=== PATIENT | male | born 1960 | race Caucasian/White ===

== ENCOUNTER 2018-12-03 11:25 | Inpatient (IN) | payer MEDICAID, OTHER ==
[~2018-12-03] VITALS: Ht 170.2 cm; Wt 73.1 kg
[2018-12-03] VITALS (8 sets, daily range): BP systolic 97–148; BP diastolic 59–72
[2018-12-03] MEDS: K, MAG and/or Phos replacement - Verify level? MC SCH (08:00)
[2018-12-03] MEDS: pantoprazole 40 MG vial IV SCH (08:00)
[~2018-12-03 11:25] MED LIST: CefTRIAXone 2gm/D5W 50ml 50 ML IV SCH; folic acid inj. 2 MG, thiamine inj. 100 MG, MVI, adult No.4 with vit. K 10 ML in dextro... IV SCH
--- NOTE | 2018-12-03 11:28 | NUR ---
REPORT FROM POWERHOUSE ELECTRICIAN APPRENTICE CINDY: PATIENT FROM HOSPITAL IN [place], PATIENT SEIZED FOR HOURS PRIOR TO ARRIVAL AT [facility] AND RECIEVED AT LEAST 6 MG ATIVAN PATIENT TO ROOM 3: INTUBATED 7.5 OETT 26 AT THE LIP, RIGHT NARES NG TUBE WITH COFFEE GROUND EMESIS, 2 20 GAUGE SL IN EACH ARM, RIGHT SUBCLAVIAN TL WITH PROTONIX GTT, LEVOPHED AT 1 MCG, DIPRIVAN, VERSED, FENTANYL GTTS FOR SEDATION PATIENT PURPOSEFUL MOVT: GRABS TOWARDS TUBE WHEN TURNED ON SIDE, COCCYX WNL.
[2018-12-03] MEDS ORDERED: normal saline 1000ml 1,000 ML IV ONE ×2 (11:35→11:45)
[2018-12-03 11:40] LABS: ABG BASE EXCESS 0.4 mmol/L (-2.0-3.0); ABG HCO3 24.9 mmol/L (22.0-26.0); ABG OXYGEN SATURATION 97.2 % (95-98); ABG PH (T) 7.412 (7.350-7.450); ABG PO2 (T) 93.1 mmHg (83-108); FCOHb 0.3 % (0.5-1.5); FMetHb 0.3 % (0.3-1.12); FO2Hb 96.6 % (94-100); PEEP 5 cm H2O; RESPIRATORY RATE 18 b/min; TOTAL HEMOGLOBIN 14.7 G/dl (14.0-18.0)
[2018-12-03] MEDS ORDERED: midazolam 100mg in NS 100ml 100 ML IV PRN (11:43)
[2018-12-03] MEDS ORDERED: NORepinephrine 8mg/ 250ml NS 250 ML IV PRN (11:43)
[2018-12-03] MEDS ORDERED: FENTANYL-0.9 % NACL/PF 100 ML IV PRN ×2 (11:43→14:32)
[2018-12-03 12:27] LABS: BASOPHILS % (AUTO) 0.4 % (0-1); EOSINOPHILS % (AUTO) 0 % (0-6); HEMATOCRIT 41.6 % (42.0-52.0); LYMPHOCYTES # (AUTO) 0.7 X10'3 (1.1-4.8); MEAN CORPUSCULAR HEMOGLOBIN 29.5 PG (27.0-31.0); MEAN CORPUSCULAR HGB CONC 33.7 g/dL (33.0-36.5); MEAN CORPUSCULAR VOLUME 87.5 FL (78-98); MEAN PLATELET VOLUME 7.5 FL (7.4-10.4); MONOCYTES # (AUTO) 0.3 X10'3 (0-0.9); MONOCYTES % (AUTO) 2.4 % (2-12); NEUTROPHILS % (AUTO) 91.2 % (42-75); PLATELET COUNT 179 X10'3 (140-440); RED BLOOD COUNT 4.76 X10'6 (4.70-6.10); RED CELL DISTRIBUTION WIDTH 13.1 % (11.5-14.5); WHITE BLOOD COUNT 10.9 X10'3 (4.5-11.0)
[2018-12-03 12:38] LABS: INR 1.3 INR; PARTIAL THROMBOPLASTIN TIME 33 SECONDS (22-32)
[2018-12-03 12:44] LABS: ALANINE AMINOTRANSFERASE 943 U/L (12-78); ALBUMIN 2.9 G/DL (3.4-5.0); ALKALINE PHOSPHATASE 22 IU/L (46-116); ANION GAP 6 (8-16); BILIRUBIN,TOTAL 0.6 MG/DL (0.1-1.0); BLOOD UREA NITROGEN 8 MG/DL (7-18); CALCIUM 8.2 MG/DL (8.5-10.1); CHLORIDE 105 MMOL/L (99-107); GLUCOSE 98 MG/DL (70-104); MAGNESIUM 1.7 MG/DL (1.5-2.4); PHOSPHORUS 3.4 MG/DL (2.3-4.5); POTASSIUM 3.5 MMOL/L (3.5-5.1); SODIUM 139 MMOL/L (135-145); TOTAL PROTEIN 5.7 G/DL (6.4-8.2); eGFR 76 ML/MIN
[2018-12-03] MEDS ORDERED: midazolam 2 mg/2 ml injection IV PRN (12:45)
[2018-12-03 12:47] LABS: ASPARTATE AMINO TRANSFERASE 1147 U/L (10-37)
[2018-12-03] MEDS: propofol 1000mg/100ml bottle 100 ML IV PRN ×3 (12:54→23:45)
--- NOTE | 2018-12-03 13:02 | NUR ---
DR BOWMAN CALLED FOR HOLDING ADMIT ORDERS, NURSING DUMBWAITER OPERATOR NOTIFIED
[2018-12-03] MEDS: fentaNYL/PF 50MCG/1 ML 2ML syringe IV PRN ×3 (13:03→13:30)
--- NOTE | 2018-12-03 13:14 | NUR ---
PHONE REPORT GIVEN TO EDUARDO DIRECTOR VALIDATION, PATIENT TO BE TRANSPORTED MONITORED WITH RN AND WITH RESPIRATORY
[2018-12-03] MEDS ORDERED: UNABLE TO OBTAIN (13:19)
--- NOTE | 2018-12-03 13:21 | NUR ---
REPIRATORY PAGED FOR TRANSPORT
--- NOTE | 2018-12-03 13:32 | NUR ---
SPUTUM THICK CREAMY AND SAMPLE SENT BY RTX
[2018-12-03 13:48] LABS: COLOR,URINE YELLOW (Yellow); GLUCOSE, URINE NEGATIVE (Neg); KETONES,URINE 15 mg/dl (Neg); LEUKOCYTE ESTERASE ,URINE SMALL (Neg); NITRITES, URINE NEGATIVE (Neg); OCCULT BLOOD,URINE LARGE (Neg); PH,URINE 5.5 (4.8-8.0); PROTEIN,URINE 30 mg/dl (Neg); UROBILINOGEN,URINE 0.2 E.U/dL (0.2-1.0)
[2018-12-03 13:49] LABS: CLARITY,URINE CLOUDY (Clear); UA COLLECTION TYPE FOLEY CATH
[2018-12-03 14:01] LABS: SQUAMOUS EPITHELIAL CELL,UR FEW /LPF (FEW)
[2018-12-03 14:07] LABS: RBC,URINE TNTC /HPF (0-2)
[2018-12-03 14:08] LABS: BACTERIA,URINE FEW /HPF (Neg); MUCUS STRANDS FEW /LPF (Neg); TRANSITIONAL EPI CELLS,URINE FEW /HPF
[2018-12-03] MEDS: FENTANYL-0.9 % NACL/PF 100 ML IV PRN (14:08)
[2018-12-03 14:14] LABS: HYALINE CASTS 0-3 /LPF (NEGATIVE)
[2018-12-03 14:15] LABS: CELLULAR CAST 0-4 /LPF (NEGATIVE)
[2018-12-03] MEDS ORDERED: sodium phosphate inj. 15 MMOL in dextrose 5%-water 150 ML IV PRN (14:15)
[2018-12-03] MEDS ORDERED: potassium Cl 20 mEq SR tablet PO PRN (14:15)
[2018-12-03] MEDS ORDERED: magnesium hydroxide 30ml (MOM) UD suspension PO PRN (14:15)
[2018-12-03] MEDS ORDERED: haloperidol 5mg tablet PO PRN (14:15)
[2018-12-03] MEDS ORDERED: magnesium Cl slow-release 64mg tablet PO PRN (14:15)
[2018-12-03] MEDS ORDERED: dextrose 50%-water 50ml dispensing syringe IV PRN (14:15)
[2018-12-03] MEDS ORDERED: haloperidol lactate 5mg/ml inj IM PRN (14:15)
[2018-12-03] MEDS ORDERED: Neutra Phos packet PO PRN (14:15)
[2018-12-03] MEDS ORDERED: sodium phosphate inj. 30 MMOL in dextrose 5%-water 250 ML IV PRN (14:15)
[2018-12-03] MEDS ORDERED: ondansetron/PF 4mg/2ml inj IV PRN (14:15)
[2018-12-03] MEDS ORDERED: acetaminophen 325mg tablet PO PRN (14:15)
[2018-12-03] MEDS ORDERED: magnesium 4gm in 100ml NS 100 ML IV PRN (14:15)
[2018-12-03] MEDS ORDERED: propofol 1000mg/100ml bottle 100 ML IV PRN (14:32)
[2018-12-03] MEDS ORDERED: ipratropium/albuterol 3ml nebule NEB PRN (14:35)
[2018-12-03] MEDS: acetaminophen 325mg tablet PO PRN (14:39)
[2018-12-03] MEDS ORDERED: folic acid inj. 2 MG, thiamine inj. 100 MG, MVI, adult No.4 with vit. K 10 ML in dextro... IV SCH ×4 (14:43)
[2018-12-03] MEDS: ringers solution, lacted 1,000 ML IV SCH (15:06)
[2018-12-03] MEDS ORDERED: pantoprazole 40MG/NS 100ML BAG 100 ML IV SCH (16:00)
[2018-12-03] MEDS: vancomycin/NS 1 GM ADD-VANTAGE 250 ML IV SCH (16:08)
[2018-12-03] MEDS: acyclovir inj 1,000 MG in normal saline 250ml IV soln 230 ML IV SCH (16:16)
[2018-12-03] MEDS: heparin, porcine 5000 units/ml vial SQ SCH (16:18)
[2018-12-03] MEDS: folic acid inj. 2 MG, thiamine inj. 100 MG, MVI, adult No.4 with vit. K 10 ML in dextro... IV SCH ×4 (17:32)
[2018-12-03] MEDS: FOSphenytoin 100mg/2ml inj IV SCH (17:32)
--- NOTE | 2018-12-03 18:30 | NUR ---
Patient in room CICU 2008. I have received report from Naman LINDQUIST, and had the opportunity to ask questions and assume patient care.
--- NOTE | 2018-12-03 18:46 | NUR ---
Admission assessment Patient unable to give any medical information due to being intubated and sedated called next of kin Orlando Goodson (brother) who stated he only knows of a heart murmur history. Other than that family states patient is healthy takes no home medications that they know of and plays golf everyday he can.
--- NOTE | 2018-12-03 18:48 | NUR ---
Spinal Tap Fluid Per [facility] they added on tests to the spinal fluid that should result tomorrow 12/04. Will follow up in the morning to ask what results were found.
[2018-12-03] MEDS ORDERED: acetaminophen 1,000mg/100ml IV 100 ML IV ONE (19:10)
[2018-12-03] MEDS ORDERED: docusate sod 100mg capsule PO SCH (20:00)
[2018-12-03] MEDS ORDERED: metoprolol succinate 25mg (24-HOUR) SR. Tablet PO SCH (20:00)
[2018-12-03] MEDS ORDERED: fentaNYL/PF 50MCG/1 ML 2ML syringe IV ONE (20:30)
[2018-12-03] MEDS ORDERED: VECuronium br 10mg inj. IV ONE (20:30)
--- NOTE | 2018-12-03 21:03 | NUR ---
Received critical Troponin of 14.6. DIE DESIGNER APPRENTICE Benitez notified, no new orders recived at this time. Continue to monitor and re-draw at 12hr jase.
[2018-12-03] MEDS: docusate sodium 100mg/10ml UD cup PO SCH (21:10)
[2018-12-03] MEDS ORDERED: gelatin sponge, absorbable (Gelfoam 12-7MM) sponge TP ONE (21:50)
[2018-12-03] MEDS: metoprolol tartrate 25mg tablet PO SCH (21:50)
[2018-12-03] MEDS: levetiracetam inj 1,500 MG in normal saline 100ml IV soln 85 ML IV SCH (21:58)
--- NOTE | 2018-12-03 22:00 | NUR ---
PT went to MRI accompanied by Charge Nurse and an RN orienting as well as RT. PT arrived back to unit around 2144. PT transferred back to bed and back on bedside monitor. PT tolerated well. Will continue to monitor.
[2018-12-03] MEDS: CefTRIAXone 2gm/D5W 50ml 50 ML IV SCH (22:19)
[2018-12-03] MEDS ORDERED: LORazepam 2 mg/ml vial IV PRN (22:20)
[2018-12-03] MEDS ORDERED: LORazepam 2 mg/ml vial IV ONE (22:20)
[2018-12-03] MEDS ORDERED: rocuronium 10mg/ml inj IV ONE (22:25)
[2018-12-04] VITALS (24 sets, daily range): BP systolic 85–144; BP diastolic 62–86
[2018-12-04] MEDS: ringers solution, lacted 1,000 ML IV SCH ×3 (00:40→20:40)
[2018-12-04] MEDS: acyclovir inj 1,000 MG in normal saline 250ml IV soln 230 ML IV SCH ×3 (01:14→15:06)
[2018-12-04] MEDS: FOSphenytoin 100mg/2ml inj IV SCH ×3 (01:14→15:06)
[2018-12-04] MEDS: heparin, porcine 5000 units/ml vial SQ SCH ×3 (01:26→15:05)
[2018-12-04 03:05] LABS: BASOPHILS % (AUTO) 0.4 % (0-1); EOSINOPHILS % (AUTO) 0 % (0-6); HEMATOCRIT 38.8 % (42.0-52.0); HEMOGLOBIN 13.2 g/dl (14.0-17.9); LYMPHOCYTES # (AUTO) 0.8 X10'3 (1.1-4.8); LYMPHOCYTES % (AUTO) 8.5 % (21-51); MEAN CORPUSCULAR HEMOGLOBIN 29.6 PG (27.0-31.0); MEAN CORPUSCULAR VOLUME 87.2 FL (78-98); MEAN PLATELET VOLUME 7.9 FL (7.4-10.4); MONOCYTES # (AUTO) 0.2 X10'3 (0-0.9); MONOCYTES % (AUTO) 1.8 % (2-12); NEUTROPHILS # (AUTO) 8.1 X10'3 (1.8-7.7); NEUTROPHILS % (AUTO) 89.3 % (42-75); PLATELET COUNT 142 X10'3 (140-440); RED BLOOD COUNT 4.45 X10'6 (4.70-6.10); RED CELL DISTRIBUTION WIDTH 13.1 % (11.5-14.5)
[2018-12-04] MEDS: vancomycin/NS 1 GM ADD-VANTAGE 250 ML IV SCH ×3 (03:22→16:18)
[2018-12-04 03:26] LABS: INR 1.3 INR; PARTIAL THROMBOPLASTIN TIME 40 SECONDS (22-32); PROTHROMBIN TIME 13.3 SECONDS (9.0-12.0)
[2018-12-04 03:29] LABS: ALBUMIN 2.6 G/DL (3.4-5.0); ALBUMIN/GLOBULIN RATIO 0.9 (1.1-1.5); ALKALINE PHOSPHATASE 18 IU/L (46-116); ANION GAP 8 (8-16); BILIRUBIN,TOTAL 0.4 MG/DL (0.1-1.0); BLOOD UREA NITROGEN 7 MG/DL (7-18); BUN/CREATININE RATIO 8.2 (5.4-32.0); CALCIUM 8.1 MG/DL (8.5-10.1); CHLORIDE 104 MMOL/L (99-107); CREATININE 0.85 MG/DL (0.60-1.10); GLUCOSE 94 MG/DL (70-104); MAGNESIUM 1.6 MG/DL (1.5-2.4); PHOSPHORUS 2.6 MG/DL (2.3-4.5); POTASSIUM 3.5 MMOL/L (3.5-5.1); SODIUM 138 MMOL/L (135-145); TOTAL CARBON DIOXIDE 26.3 MMOL/L (24-32); TOTAL PROTEIN 5.4 G/DL (6.4-8.2); eGFR > 90 ML/MIN
[2018-12-04 03:30] LABS: ABG BASE EXCESS -2.5 mmol/L (-2.0-3.0); ABG OXYGEN SATURATION 96.6 % (95-98); ABG PCO2 (T) 41.4 mmHg (35.0-48.0); ABG PH (T) 7.354 (7.350-7.450); ABG PO2 (T) 99.8 mmHg (83-108); ALLEN'S TEST Positive; FCOHb 0.3 % (0.5-1.5); FMetHb 0.3 % (0.3-1.12); MINUTE VOLUME 10 L/min; PATIENT TEMPERATURE 39.2; PEEP 5 cm H2O; RESPIRATORY RATE 16 b/min; RESPIRATORY RATE (OBSERVED) 16 b/min; TOTAL HEMOGLOBIN 14.2 G/dl (14.0-18.0)
[2018-12-04 03:33] LABS: TROPONIN I 27.67 NG/ML (0.0-0.05)
[2018-12-04 03:35] LABS: ALANINE AMINOTRANSFERASE 2313 U/L (12-78)
[2018-12-04 03:41] LABS: ASPARTATE AMINO TRANSFERASE 2187 U/L (10-37)
--- NOTE | 2018-12-04 03:45 | NUR ---
Received critical Troponin of 27.67. SURFACE TO AIR WEAPONS OFFICER Benitez notified and no new orders received at this time. No changes to rhythm and PT already on blood thinners. Will continue to monitor.
[2018-12-04] MEDS: propofol 1000mg/100ml bottle 100 ML IV PRN ×4 (04:06→18:37)
[2018-12-04] MEDS: acetaminophen 325mg tablet PO PRN (04:41)
--- NOTE | 2018-12-04 04:45 | NUR ---
PRN Tylenol given for Temp of 39.3. Will continue to monitor.
--- NOTE | 2018-12-04 06:42 | NUR ---
Problems reprioritized. Patient report given, questions answered & plan of care reviewed with Naman LINDQUIST.
[2018-12-04] MEDS: folic acid inj. 2 MG, thiamine inj. 100 MG, MVI, adult No.4 with vit. K 10 ML in dextro... IV SCH ×4 (07:03)
[2018-12-04] MEDS: levetiracetam inj 1,500 MG in normal saline 100ml IV soln 85 ML IV SCH (07:03)
[2018-12-04] MEDS: K, MAG and/or Phos replacement - Verify level? MC SCH (07:05)
[2018-12-04] MEDS: docusate sodium 100mg/10ml UD cup PO SCH ×2 (07:54→20:28)
[2018-12-04] MEDS: pantoprazole 40 MG vial IV SCH (07:54)
[2018-12-04] MEDS: metoprolol tartrate 25mg tablet PO SCH ×2 (07:55→21:58)
[2018-12-04] MEDS ORDERED: aspirin 325mg tablet PO SCH (08:30)
[2018-12-04] MEDS: potassium Cl 20 mEq SR tablet PO PRN ×2 (08:30→16:42)
[2018-12-04] MEDS: magnesium 2GM in 50ml NS 50 ML IV PRN (08:41)
[2018-12-04] MEDS ORDERED: 0.9 % SODIUM CHLORIDE 10 ML VIAL ONE (09:00)
[2018-12-04] MEDS ORDERED: rocuronium 10mg/ml inj IV ONE (09:00)
--- NOTE | 2018-12-04 11:55 | NUR ---
Influenza A positive Lab called to tell me that patient was influenza A positive. I called Dr. Jean patient placed on isolation precautions and Tamiflu BID started
--- NOTE | 2018-12-04 12:17 | NUR ---
Stop Sedation Meds Stopped Sedation meds per Dr. Jean to see if patient would respond. After 10 mins off sedation patient was able to open eyes and follow commands. Dr. Jean in the room to verify change. Off sedation the patient is very restless and Dr. Jean stated to put him back on Diprivan.
--- NOTE | 2018-12-04 13:06 | NUR ---
Patient is intubated. Per RN pt is doing well and discussed breathing trials with RT. Possible TF if needing to remain on ventilator. Recommend: 1. If to receive tube feeding while intubated recommend vital AF at 65 ml/hr 2. When extubated, advance diet as medically indicated to regular 3. Wt per rx Addendum: 12/04/18 at [address] Amended: Links added.
[2018-12-04] MEDS ORDERED: mineral oil/petrolatum ophthal oint EACHEYE SCH (14:00)
--- NOTE | 2018-12-04 15:47 | NUR ---
Large sum of [employer] called to ask if the patient had any money on his person. I went through his belongings and found a large sum of money that was checked in by security
[2018-12-04] MEDS: CefTRIAXone 2gm/D5W 50ml 50 ML IV SCH (16:18)
--- NOTE | 2018-12-04 17:42 | NUR ---
Cooling blanket Placed cooling blanket on patient per Dr. Jean.
--- NOTE | 2018-12-04 18:26 | NUR ---
Patient in room CICU 2008. I have received report from Naman LINDQUIST, and had the opportunity to ask questions and assume patient care.
--- NOTE | 2018-12-04 19:30 | NUR ---
PT resting with no s/s of distress noted at this time. VSS. PT is intubated and mechanically vented, tolerating settings well, O2 sat <96%. PT tolerating sedation well. PT has cooling blankets in place d/t being febrile and unable to give tylenol d/t LFT's being elevated. Knutson in place draining to gravity. Bed is locked and low. Bilat soft wrist restraints in place and secure. Will continue to monitor.
[2018-12-04] MEDS: FENTANYL-0.9 % NACL/PF 100 ML IV PRN (19:36)
--- NOTE | 2018-12-04 19:42 | NUR ---
Dr Cisneros assessed PT and to follow up. Received orders to DC the Fosphenytoin and to change Keppra order from 1500mg Bid to 1000mg BID. Will continue to monitor.
[2018-12-04] MEDS: oseltamivir phos 75mg capsule PO SCH (20:28)
[2018-12-04] MEDS: mineral oil/petrolatum ophthal oint EACHEYE SCH (20:38)
[2018-12-04] MEDS: levetiracetam inj 1,000 MG in normal saline 100ml IV soln 90 ML IV SCH (21:44)
[2018-12-05] VITALS (24 sets, daily range): BP systolic 83–150; BP diastolic 51–92
--- NOTE | 2018-12-05 | NUR ---
PT resting with no s/s of distress noted at this time. VSS. Will continue to monitor.
[2018-12-05] MEDS: heparin, porcine 5000 units/ml vial SQ SCH ×3 (00:22→15:52)
[2018-12-05] MEDS: acyclovir inj 1,000 MG in normal saline 250ml IV soln 230 ML IV SCH ×3 (00:22→15:51)
[2018-12-05] MEDS: propofol 1000mg/100ml bottle 100 ML IV PRN ×5 (00:31→16:59)
[2018-12-05] MEDS: vancomycin/NS 1 GM ADD-VANTAGE 250 ML IV SCH (01:54)
[2018-12-05] MEDS ORDERED: VANCOMYCIN LEVEL IV ONE ×2 (02:30→08:30)
[2018-12-05] MEDS: mineral oil/petrolatum ophthal oint EACHEYE SCH ×4 (03:22→20:35)
[2018-12-05 03:29] LABS: BASOPHILS % (AUTO) 0.4 % (0-1); EOSINOPHILS % (AUTO) 0.3 % (0-6); HEMATOCRIT 40.3 % (42.0-52.0); HEMOGLOBIN 13.6 g/dl (14.0-17.9); LYMPHOCYTES # (AUTO) 1.2 X10'3 (1.1-4.8); LYMPHOCYTES % (AUTO) 15.3 % (21-51); MEAN CORPUSCULAR HEMOGLOBIN 29.5 PG (27.0-31.0); MEAN CORPUSCULAR HGB CONC 33.7 g/dL (33.0-36.5); MEAN CORPUSCULAR VOLUME 87.8 FL (78-98); MEAN PLATELET VOLUME 8.1 FL (7.4-10.4); MONOCYTES # (AUTO) 0.5 X10'3 (0-0.9); MONOCYTES % (AUTO) 6.1 % (2-12); NEUTROPHILS % (AUTO) 77.9 % (42-75); PLATELET COUNT 146 X10'3 (140-440); RED BLOOD COUNT 4.59 X10'6 (4.70-6.10); RED CELL DISTRIBUTION WIDTH 13.2 % (11.5-14.5); WHITE BLOOD COUNT 7.6 X10'3 (4.5-11.0)
--- NOTE | 2018-12-05 03:30 | NUR ---
PT waking agitated and requiring frequent bolus of Propofol to be compliant with vent. VSS. Temperature has been decreasing nicely with cooling blankets in place. Will continue to monitor.
[2018-12-05 03:37] LABS: PARTIAL THROMBOPLASTIN TIME 42 SECONDS (22-32); PROTHROMBIN TIME 10.3 SECONDS (9.0-12.0)
[2018-12-05 03:46] LABS: ALBUMIN 2.4 G/DL (3.4-5.0); ALBUMIN/GLOBULIN RATIO 0.8 (1.1-1.5); ALKALINE PHOSPHATASE 18 IU/L (46-116); ANION GAP 5 (8-16); ASPARTATE AMINO TRANSFERASE 830 U/L (10-37); BILIRUBIN,TOTAL 0.5 MG/DL (0.1-1.0); BLOOD UREA NITROGEN 7 MG/DL (7-18); BUN/CREATININE RATIO 8.9 (5.4-32.0); CALCIUM 7.8 MG/DL (8.5-10.1); CHLORIDE 106 MMOL/L (99-107); CREATININE 0.79 MG/DL (0.60-1.10); GLUCOSE 82 MG/DL (70-104); MAGNESIUM 1.6 MG/DL (1.5-2.4); POTASSIUM 3.8 MMOL/L (3.5-5.1); SODIUM 140 MMOL/L (135-145); TOTAL CARBON DIOXIDE 29.1 MMOL/L (24-32); TOTAL PROTEIN 5.3 G/DL (6.4-8.2); eGFR > 90 ML/MIN
[2018-12-05 03:48] LABS: ALANINE AMINOTRANSFERASE 1526 U/L (12-78)
[2018-12-05 03:49] LABS: TROPONIN I 15.05 NG/ML (0.0-0.05)
[2018-12-05 04:41] LABS: ABG BASE EXCESS -2.1 mmol/L (-2.0-3.0); ABG HCO3 23.4 mmol/L (22.0-26.0); ABG OXYGEN SATURATION 95.4 % (95-98); ABG PO2 (T) 84.4 mmHg (83-108); ALLEN'S TEST Positive; FCOHb 0.3 % (0.5-1.5); FMetHb 0.4 % (0.3-1.12); FO2Hb 94.7 % (94-100); MINUTE VOLUME 13 L/min; PATIENT TEMPERATURE 38.2; PEEP 5 cm H2O; RESPIRATORY RATE 14 b/min; RESPIRATORY RATE (OBSERVED) 17 b/min; TOTAL HEMOGLOBIN 14.3 G/dl (14.0-18.0)
[2018-12-05] MEDS: ringers solution, lacted 1,000 ML IV SCH ×2 (04:57→15:52)
--- NOTE | 2018-12-05 06:30 | NUR ---
Patient in room CICU 2008. I have received report from AMEENA Tavarez and had the opportunity to ask questions and assume patient care.
[2018-12-05] MEDS: FENTANYL-0.9 % NACL/PF 100 ML IV PRN ×2 (06:37→16:10)
--- NOTE | 2018-12-05 07:04 | NUR ---
Problems reprioritized. Patient report given, questions answered & plan of care reviewed with Maria G LINDQUIST.
[2018-12-05] MEDS ORDERED: potassium Cl 40MEQ/250ML bag 250 ML IV PRN (07:30)
[2018-12-05] MEDS: docusate sodium 100mg/10ml UD cup PO SCH ×2 (07:44→20:10)
[2018-12-05] MEDS: pantoprazole 40 MG vial IV SCH (07:44)
[2018-12-05] MEDS: oseltamivir phos 75mg capsule PO SCH ×2 (07:45→20:10)
[2018-12-05] MEDS: aspirin 81mg tablet.DR PO SCH (07:46)
[2018-12-05] MEDS: metoprolol tartrate 25mg tablet PO SCH ×2 (07:46→20:00)
[2018-12-05] MEDS: levetiracetam inj 1,000 MG in normal saline 100ml IV soln 90 ML IV SCH ×2 (07:51→20:10)
[2018-12-05] MEDS ORDERED: dextrose 50%-water 50ml dispensing syringe IV PRN ×2 (08:00)
[2018-12-05] MEDS ORDERED: glucagon, human recombinant 1mg kit SUBCUT PRN (08:00)
[2018-12-05] MEDS ORDERED: levetiracetam inj 1,000 MG in normal saline 100ml IV soln 90 ML IV SCH (08:00)
[2018-12-05] MEDS: K, MAG and/or Phos replacement - Verify level? MC SCH (08:00)
[2018-12-05] MEDS ORDERED: dextrose ORAL solution 15 GM/59 ML bottle PO PRN ×2 (08:00)
[2018-12-05] MEDS: folic acid inj. 2 MG, thiamine inj. 100 MG, MVI, adult No.4 with vit. K 10 ML in dextro... IV SCH ×4 (08:27)
[2018-12-05] MEDS: magnesium 2GM in 50ml NS 50 ML IV PRN (09:15)
[2018-12-05] MEDS ORDERED: vancomycin inj 1,250 MG in normal saline 250ml IV soln 250 ML IV SCH (11:00)
[2018-12-05 11:48] LABS: PREALBUMIN 11.2 MG/DL (19-36)
[2018-12-05] MEDS: potassium Cl 40MEQ/250ML bag 250 ML IV PRN (12:29)
--- NOTE | 2018-12-05 12:30 | NUR ---
Tube feeding consult. Patient is intubated. Per RN pt is doing well and discussed breathing trials with RT. Possible TF if needing to remain on ventilator. Recommend: 1. Continuous tube feeding using vital AF at 65 ml/hr to provide total volume 1560 ml, 1872 cals, 117 gm protein, 1265 ml free water. 2. Additional 200 ml water flush q 4 hrs 3. Prealbumin q /, daily wts 4. When extubated, advance diet as medically indicated to regular Addendum: 12/05/18 at [address] Amended: Links added.
--- NOTE | 2018-12-05 12:31 | NUR ---
TF consult, patient still intubated and sedated. Needs nutrition per OG tube with tube feedings. Patient is influenza A positive. Admitted with NSTEMI, status epilepticus, acute respiratory failure per MD note. Recommend: 1. Continuous tube feeding using vital AF at 65 ml/hr to provide total volume 1560 ml, 1872 cals, 117 gm protein, 1265 ml free water. 2. Additional 200 ml water flush q 4 hrs 3. Prealbumin q /, daily wts 4. When extubated, advance diet as medically indicated to regular Addendum: 12/05/18 at [address] Amended: Links added.
[2018-12-05] MEDS: dexmedetomidin/NS 400mcg/100ml 100 ML IV SCH (14:14)
[2018-12-05] MEDS ORDERED: polyethylene glycol 3350 17gm powd pack PO PRN (14:15)
[2018-12-05] MEDS ORDERED: bisacodyl 10mg suppository rectal RC PRN (14:15)
--- NOTE | 2018-12-05 14:38 | NUR ---
pt is intubated and sedated, sedation vacation completed, pt opened eyes spontaneously but doesnt make any meaningful eye contact. unable to follow verbal commands, pt is restless when awake. precedex gtt initiated and titrating to maintain RASS score. Dr. Jean arrived on unit and assessed pt, updated on pt condition.
[2018-12-05] MEDS: CefTRIAXone 2gm/D5W 50ml 50 ML IV SCH (16:59)
[2018-12-05] MEDS ORDERED: normal saline 1000ml 1,000 ML IV ONE (17:45)
[2018-12-05] MEDS ORDERED: normal saline 500ml IV soln 1,000 ML IV ONE (17:50)
--- NOTE | 2018-12-05 17:56 | NUR ---
pt became hypotensive at times, MAP 50-55. Dr. Jean notified and 500cc NS bolus order received x1 to improve BP. Titrating sedation gtt to maintain MAP >60
--- NOTE | 2018-12-05 18:20 | NUR ---
Problems reprioritized. Patient report given, questions answered & plan of care reviewed with AMEENA Tavarez.
--- NOTE | 2018-12-05 18:25 | NUR ---
Patient in room CICU 2008. I have received report from Maria G LINDQUIST, and had the opportunity to ask questions and assume patient care.
--- NOTE | 2018-12-05 19:00 | NUR ---
PT intubated and sedated. BP was decreased @ 70's/40's, sedation vacation performed @ 1834. PT woke up easily and followed commands. Sedation turned back on at half the prior running rate @ 1857 d/t PT becoming agitated. BP improved with sedation off. PT is afebrile. Knutson in place draining to gravity. Bed is locked and low. Bilat soft wrist restraints in place and secure. Will continue to monitor closely.
[2018-12-05] MEDS: lactobacillus rhamnosus 10,000 MMU CELLS/CAPSULE PO SCH (20:10)
--- NOTE | 2018-12-05 20:15 | NUR ---
PT BP is decreased, 80's/50's, map >60. CHARGER TESTER Bassam notified of low BP and 2000 dose of Lopressor being due. Received order to hold tonights dose and change order to 12.5mg BIS instead of the 25mg BID. Will continue to monitor.
--- NOTE | 2018-12-05 22:00 | NUR ---
PT agitated and constantly moving in bed. He is scooting himself down in attempts to self extubate. Restraints secured tightly. Sedation being titrated up as PT tolerates. Will continue to monitor closely.
[2018-12-06] VITALS (24 sets, daily range): BP systolic 78–137; BP diastolic 47–88
[2018-12-06] MEDS: acyclovir inj 1,000 MG in normal saline 250ml IV soln 230 ML IV SCH ×2 (00:02→08:49)
[2018-12-06] MEDS: heparin, porcine 5000 units/ml vial SQ SCH ×3 (00:02→16:01)
[2018-12-06] MEDS: mineral oil/petrolatum ophthal oint EACHEYE SCH ×4 (02:00→19:46)
--- NOTE | 2018-12-06 03:00 | NUR ---
PT BP decreased, Precedex turned off d/t being sensitive to med. Will continue to monitor.
[2018-12-06 03:22] LABS: BASOPHILS % (AUTO) 0.6 % (0-1); EOSINOPHILS # (AUTO) 0.2 X10'3 (0-0.9); EOSINOPHILS % (AUTO) 4.6 % (0-6); HEMATOCRIT 34.8 % (42.0-52.0); HEMOGLOBIN 11.9 g/dl (14.0-17.9); LYMPHOCYTES # (AUTO) 0.9 X10'3 (1.1-4.8); LYMPHOCYTES % (AUTO) 20.2 % (21-51); MEAN CORPUSCULAR HEMOGLOBIN 29.7 PG (27.0-31.0); MEAN CORPUSCULAR HGB CONC 34.2 g/dL (33.0-36.5); MEAN CORPUSCULAR VOLUME 86.9 FL (78-98); MEAN PLATELET VOLUME 7.8 FL (7.4-10.4); MONOCYTES # (AUTO) 0.6 X10'3 (0-0.9); MONOCYTES % (AUTO) 12.1 % (2-12); NEUTROPHILS # (AUTO) 2.8 X10'3 (1.8-7.7); NEUTROPHILS % (AUTO) 62.5 % (42-75); PLATELET COUNT 152 X10'3 (140-440); RED BLOOD COUNT 4.01 X10'6 (4.70-6.10); RED CELL DISTRIBUTION WIDTH 13.2 % (11.5-14.5); WHITE BLOOD COUNT 4.5 X10'3 (4.5-11.0)
[2018-12-06 03:31] LABS: PARTIAL THROMBOPLASTIN TIME 42 SECONDS (22-32); PROTHROMBIN TIME 9.9 SECONDS (9.0-12.0)
[2018-12-06 03:49] LABS: ALANINE AMINOTRANSFERASE 882 U/L (12-78); ALBUMIN/GLOBULIN RATIO 0.7 (1.1-1.5); ALKALINE PHOSPHATASE 20 IU/L (46-116); ANION GAP 6 (8-16); ASPARTATE AMINO TRANSFERASE 524 U/L (10-37); BILIRUBIN,TOTAL 0.3 MG/DL (0.1-1.0); BLOOD UREA NITROGEN 6 MG/DL (7-18); BUN/CREATININE RATIO 10.2 (5.4-32.0); CALCIUM 7.9 MG/DL (8.5-10.1); CHLORIDE 109 MMOL/L (99-107); CREATININE 0.59 MG/DL (0.60-1.10); GLUCOSE 102 MG/DL (70-104); MAGNESIUM 1.6 MG/DL (1.5-2.4); PHOSPHORUS 1.8 MG/DL (2.3-4.5); POTASSIUM 3.2 MMOL/L (3.5-5.1); SODIUM 145 MMOL/L (135-145); TOTAL PROTEIN 4.7 G/DL (6.4-8.2); eGFR > 90 ML/MIN
[2018-12-06 03:51] LABS: ABG BASE EXCESS 2.8 mmol/L (-2.0-3.0); ABG HCO3 28.3 mmol/L (22.0-26.0); ABG OXYGEN SATURATION 97.8 % (95-98); ABG PCO2 (T) 45.5 mmHg (35.0-48.0); ABG PH (T) 7.409 (7.350-7.450); ABG PO2 (T) 104.1 mmHg (83-108); ALLEN'S TEST Positive; FCOHb 0.3 % (0.5-1.5); FMetHb 0.1 % (0.3-1.12); FO2Hb 97.4 % (94-100); MINUTE VOLUME 10 L/min; PATIENT TEMPERATURE 36.2; PEEP 5 cm H2O; RESPIRATORY RATE 16 b/min; RESPIRATORY RATE (OBSERVED) 24 b/min; TIDAL VOLUME 606 mL; TOTAL HEMOGLOBIN 13.1 G/dl (14.0-18.0)
[2018-12-06 03:53] LABS: TROPONIN I 6.05 NG/ML (0.0-0.05)
[2018-12-06] MEDS: ringers solution, lacted 1,000 ML IV SCH ×2 (06:12→10:56)
[2018-12-06] MEDS: propofol 1000mg/100ml bottle 100 ML IV PRN ×2 (06:12→12:13)
--- NOTE | 2018-12-06 06:39 | NUR ---
Maria G Hammonds in to assess PT, Asked her about lowering the Lopressor dose. She stated keep dose at 25mg if PT tolerates. PT's BP has been stable with Precedex off.
--- NOTE | 2018-12-06 06:41 | NUR ---
Problems reprioritized. Patient report given, questions answered & plan of care reviewed with Jensen LINDQUIST.
[2018-12-06] MEDS: pantoprazole 40 MG vial IV SCH (08:18)
[2018-12-06] MEDS: magnesium 2GM in 50ml NS 50 ML IV PRN (08:21)
[2018-12-06] MEDS: levetiracetam inj 1,000 MG in normal saline 100ml IV soln 90 ML IV SCH ×2 (08:21→20:05)
[2018-12-06] MEDS: oseltamivir phos 75mg capsule PO SCH ×2 (08:35→20:06)
[2018-12-06] MEDS: aspirin 81mg tablet.DR PO SCH (08:36)
[2018-12-06] MEDS: docusate sodium 100mg/10ml UD cup PO SCH ×2 (08:36→19:46)
[2018-12-06] MEDS: lactobacillus rhamnosus 10,000 MMU CELLS/CAPSULE PO SCH ×2 (08:36→20:06)
[2018-12-06] MEDS: metoprolol tartrate 25mg tablet PO SCH ×2 (08:36→20:06)
[2018-12-06] MEDS: K, MAG and/or Phos replacement - Verify level? MC SCH (08:37)
--- NOTE | 2018-12-06 10:05 | NUR ---
patient extubated too 2L NC. Patient tolerated well Addendum: 12/06/18 at 1052 by Jensen Rivas RN NG tube pulled as well.
[2018-12-06] MEDS ORDERED: VANCOMYCIN LEVEL IV ONE (10:30)
--- NOTE | 2018-12-06 10:58 | NUR ---
Follow up: Patient was extubated, tube feedings stopped. Patient's diet will advance as tolerated to regular, receiving clear liquids now. Will continue to follow. Recommend: 1. advance diet as medically indicated to regular 2. wt per rx Addendum: 12/06/18 at [address] Amended: Links added.
[2018-12-06] MEDS: potassium Cl 40MEQ/250ML bag 250 ML IV PRN ×2 (11:25→16:56)
[2018-12-06] MEDS: folic acid inj. 2 MG, thiamine inj. 100 MG, MVI, adult No.4 with vit. K 10 ML in dextro... IV SCH ×4 (11:26)
[2018-12-06] MEDS: dexmedetomidin/NS 400mcg/100ml 100 ML IV SCH (15:37)
[2018-12-06] MEDS ORDERED: acetaminophen 325mg tablet PO PRN ×2 (15:50)
--- NOTE | 2018-12-06 16:19 | NUR ---
Dr Rowe made aware of blood oozing at the top of the wound-vac, which is not affecting its function. He says its ok and to be expected with anticoagulation. Addendum: 12/06/18 at 1700 by Jensen Rivas RN Wrong patient
[2018-12-06 16:44] LABS: MAGNESIUM 1.7 MG/DL (1.5-2.4); POTASSIUM 3.4 MMOL/L (3.5-5.1)
--- NOTE | 2018-12-06 17:04 | NUR ---
Patient voided 80ml. Post void bladder scan showed 450. Will continue to monitor. Addendum: 12/06/18 at 1710 by Jensen Rivas RN Patient voided another 200. Will continue to monitor
[2018-12-06] MEDS ORDERED: magnesium Cl slow-release 64mg tablet PO PRN (17:25)
[2018-12-06] MEDS ORDERED: magnesium 4gm in 100ml NS 100 ML IV PRN (17:25)
[2018-12-06] MEDS ORDERED: magnesium 2GM in 50ml NS 50 ML IV PRN (17:25)
--- NOTE | 2018-12-06 18:30 | NUR ---
Patient in room CICU 2008. I have received report from Jensen LINDQUIST and had the opportunity to ask questions and assume patient care.
--- NOTE | 2018-12-06 23:14 | NUR ---
pt was bladder scanned around 2300 after voiding. bladder scanner shows 0ml residual in bladder. continue to monitor.
[2018-12-07] VITALS (24 sets, daily range): BP systolic 102–144; BP diastolic 45–105
[2018-12-07] MEDS: heparin, porcine 5000 units/ml vial SQ SCH ×3 (01:35→15:30)
[2018-12-07 02:57] LABS: INR 0.9 INR; PARTIAL THROMBOPLASTIN TIME 32 SECONDS (22-32); PROTHROMBIN TIME 9.6 SECONDS (9.0-12.0)
[2018-12-07 02:59] LABS: BASOPHILS % (AUTO) 0.4 % (0-1); EOSINOPHILS # (AUTO) 0.1 X10'3 (0-0.9); EOSINOPHILS % (AUTO) 2.2 % (0-6); HEMOGLOBIN 12.3 g/dl (14.0-17.9); LYMPHOCYTES # (AUTO) 1.2 X10'3 (1.1-4.8); LYMPHOCYTES % (AUTO) 21.5 % (21-51); MEAN CORPUSCULAR HEMOGLOBIN 29.7 PG (27.0-31.0); MEAN CORPUSCULAR HGB CONC 34.3 g/dL (33.0-36.5); MEAN CORPUSCULAR VOLUME 86.8 FL (78-98); MEAN PLATELET VOLUME 7.7 FL (7.4-10.4); MONOCYTES # (AUTO) 0.8 X10'3 (0-0.9); MONOCYTES % (AUTO) 15.1 % (2-12); NEUTROPHILS # (AUTO) 3.3 X10'3 (1.8-7.7); NEUTROPHILS % (AUTO) 60.8 % (42-75); PLATELET COUNT 180 X10'3 (140-440); RED BLOOD COUNT 4.15 X10'6 (4.70-6.10); WHITE BLOOD COUNT 5.4 X10'3 (4.5-11.0)
[2018-12-07 03:03] LABS: ALANINE AMINOTRANSFERASE 767 U/L (12-78); ALBUMIN 2.5 G/DL (3.4-5.0); ALBUMIN/GLOBULIN RATIO 0.8 (1.1-1.5); ALKALINE PHOSPHATASE 27 IU/L (46-116); ANION GAP 7 (8-16); ASPARTATE AMINO TRANSFERASE 653 U/L (10-37); BILIRUBIN,TOTAL 0.8 MG/DL (0.1-1.0); BLOOD UREA NITROGEN 6 MG/DL (7-18); BUN/CREATININE RATIO 9.7 (5.4-32.0); CALCIUM 8.5 MG/DL (8.5-10.1); CHLORIDE 109 MMOL/L (99-107); CREATININE 0.62 MG/DL (0.60-1.10); GLUCOSE 94 MG/DL (70-104); MAGNESIUM 1.6 MG/DL (1.5-2.4); PHOSPHORUS 3.1 MG/DL (2.3-4.5); POTASSIUM 3.2 MMOL/L (3.5-5.1); SODIUM 145 MMOL/L (135-145); TOTAL CARBON DIOXIDE 28.8 MMOL/L (24-32); TOTAL PROTEIN 5.5 G/DL (6.4-8.2); eGFR > 90 ML/MIN
[2018-12-07 03:06] LABS: TROPONIN I 4.19 NG/ML (0.0-0.05)
--- NOTE | 2018-12-07 03:46 | NUR ---
Mag 1.6, per MD note, replacement to 2.0, therefore, replacement started at this time.
[2018-12-07] MEDS: potassium Cl 40MEQ/250ML bag 250 ML IV PRN (03:59)
--- NOTE | 2018-12-07 06:20 | NUR ---
Problems reprioritized. Patient report given, questions answered & plan of care reviewed with Jensen LINDQUIST.
[2018-12-07] MEDS: docusate sodium 100mg/10ml UD cup PO SCH ×2 (06:41→20:00)
[2018-12-07] MEDS: K, MAG and/or Phos replacement - Verify level? MC SCH (08:00)
[2018-12-07] MEDS: metoprolol tartrate 25mg tablet PO SCH ×2 (08:00→20:00)
[2018-12-07] MEDS: aspirin 81mg tablet.DR PO SCH (08:07)
[2018-12-07] MEDS: lactobacillus rhamnosus 10,000 MMU CELLS/CAPSULE PO SCH ×2 (08:07→20:16)
[2018-12-07] MEDS: pantoprazole 40 MG vial IV SCH (08:08)
[2018-12-07] MEDS: oseltamivir phos 75mg capsule PO SCH ×2 (08:08→20:16)
[2018-12-07] MEDS: folic acid inj. 2 MG, thiamine inj. 100 MG, MVI, adult No.4 with vit. K 10 ML in dextro... IV SCH ×4 (08:09)
[2018-12-07] MEDS: levetiracetam inj 1,000 MG in normal saline 100ml IV soln 90 ML IV SCH (08:10)
[2018-12-07] MEDS: ringers solution, lacted 1,000 ML IV SCH (10:25)
[2018-12-07 10:43] LABS: MAGNESIUM 2.3 MG/DL (1.5-2.4); POTASSIUM 3.4 MMOL/L (3.5-5.1)
[2018-12-07] MEDS ORDERED: magnesium 4gm in 100ml NS 100 ML IV PRN (11:30)
[2018-12-07] MEDS ORDERED: magnesium 2GM in 50ml NS 50 ML IV PRN (11:30)
[2018-12-07] MEDS: potassium Cl 20mEq/100mL bag 100 ML IV PRN ×3 (12:19→15:24)
--- NOTE | 2018-12-07 18:30 | NUR ---
Patient in room CICU 2008. I have received report from Jensen LINDQUIST and had the opportunity to ask questions and assume patient care.
[2018-12-07] MEDS: levetiracetam 250mg tablet PO SCH (20:16)
[2018-12-08] VITALS (20 sets, daily range): BP systolic 97–152; BP diastolic 58–85
[2018-12-08] MEDS: heparin, porcine 5000 units/ml vial SQ SCH ×4 (00:09→23:12)
[2018-12-08 06:00] LABS: BASOPHILS % (AUTO) 0.5 % (0-1); EOSINOPHILS # (AUTO) 0.2 X10'3 (0-0.9); EOSINOPHILS % (AUTO) 2.5 % (0-6); HEMATOCRIT 36.3 % (42.0-52.0); HEMOGLOBIN 12.4 g/dl (14.0-17.9); LYMPHOCYTES # (AUTO) 1.7 X10'3 (1.1-4.8); LYMPHOCYTES % (AUTO) 27.5 % (21-51); MEAN CORPUSCULAR HEMOGLOBIN 29.4 PG (27.0-31.0); MEAN CORPUSCULAR VOLUME 86.4 FL (78-98); MEAN PLATELET VOLUME 8.5 FL (7.4-10.4); MONOCYTES % (AUTO) 16.3 % (2-12); NEUTROPHILS # (AUTO) 3.3 X10'3 (1.8-7.7); NEUTROPHILS % (AUTO) 53.2 % (42-75); PLATELET COUNT 190 X10'3 (140-440); WHITE BLOOD COUNT 6.3 X10'3 (4.5-11.0)
[2018-12-08 06:24] LABS: ALANINE AMINOTRANSFERASE 658 U/L (12-78); ALBUMIN 2.6 G/DL (3.4-5.0); ALBUMIN/GLOBULIN RATIO 0.9 (1.1-1.5); ALKALINE PHOSPHATASE 30 IU/L (46-116); ANION GAP 4 (8-16); ASPARTATE AMINO TRANSFERASE 553 U/L (10-37); BILIRUBIN,TOTAL 0.6 MG/DL (0.1-1.0); BLOOD UREA NITROGEN 9 MG/DL (7-18); BUN/CREATININE RATIO 12.2 (5.4-32.0); CALCIUM 8.6 MG/DL (8.5-10.1); CHLORIDE 109 MMOL/L (99-107); CREATININE 0.74 MG/DL (0.60-1.10); GLUCOSE 98 MG/DL (70-104); MAGNESIUM 1.8 MG/DL (1.5-2.4); PHOSPHORUS 2.8 MG/DL (2.3-4.5); POTASSIUM 3.8 MMOL/L (3.5-5.1); SODIUM 143 MMOL/L (135-145); TOTAL PROTEIN 5.6 G/DL (6.4-8.2); eGFR > 90 ML/MIN
--- NOTE | 2018-12-08 06:30 | NUR ---
report received from Madhav barnes,
--- NOTE | 2018-12-08 06:35 | NUR ---
Problems reprioritized. Patient report given, questions answered & plan of care reviewed with Martha LINDQUIST.
[2018-12-08] MEDS: docusate sodium 100mg/10ml UD cup PO SCH ×2 (08:00→20:00)
[2018-12-08] MEDS ORDERED: methylnaltrexone br 12mg/0.6ml inj***SubQ only SQ SCH (08:00)
[2018-12-08] MEDS: metoprolol tartrate 25mg tablet PO SCH (08:00)
[2018-12-08] MEDS: folic acid 1mg tablet PO SCH (08:01)
[2018-12-08] MEDS: thiamine 100mg tablet PO SCH (08:01)
[2018-12-08] MEDS: oseltamivir phos 75mg capsule PO SCH ×2 (08:02→20:08)
[2018-12-08] MEDS: lactobacillus rhamnosus 10,000 MMU CELLS/CAPSULE PO SCH ×2 (08:02→20:08)
[2018-12-08] MEDS: multivitamins, therapeutics tablet PO SCH (08:02)
[2018-12-08] MEDS: levetiracetam 250mg tablet PO SCH ×2 (08:02→20:08)
[2018-12-08] MEDS: aspirin 81mg tablet.DR PO SCH (08:03)
--- NOTE | 2018-12-08 09:00 | NUR ---
pt is forgetful, and needs frequent reminding about why he is here in hospital, and to call for assistance getting out of bed, does not remember to call nurse call light.
[2018-12-08] MEDS ORDERED: aminophylline 250mg/10ml inj. IV PRN (11:15)
[2018-12-08] MEDS ORDERED: metoprolol tartrate 1mg/ml inj IV PRN (11:15)
[2018-12-08] MEDS ORDERED: regadenoson 0.4mg/5ml syringe IV ONE (11:15)
[2018-12-08] MEDS ORDERED: nitroGLYCERIN 0.4mg SUBLingual tab SL PRN (11:15)
--- NOTE | 2018-12-08 12:02 | NUR ---
reassessment: Pt PO 25%/refusing full liquid meals s/p extubation. LBM 12/07. Will need stress test r/t NSTEMI per MD note. Ensure Enlive TIDWM added for additional protein/kcal needs; MD notified. Will continue to monitor. Recommend: 1. advance diet as medically indicated to regular 2. ensure enlive TIDWM 3. wt per rx Addendum: 12/08/18 at [address] Amended: Links added.
--- NOTE | 2018-12-08 16:58 | NUR ---
report called to RN, patient transported via wheelchair, tele monitor and RN with all belongings
[2018-12-08] MEDS: K, MAG and/or Phos replacement - Verify level? MC SCH (17:17)
--- NOTE | 2018-12-08 17:39 | NUR ---
received report from AMEENA Thomas in icu. pt arrived to unit in stable condition, oriented to room, bed in low position, locked. call light in reach. pt alert and oriented, no complaints at this time. will continue to monitor pt. Addendum: 12/08/18 at 1744 by Luisa Bryan RN will admin 1600 heparin
[2018-12-08] MEDS ORDERED: POTASSIUM 40MEQ/500ML NS ***PERIPHERAL LINE REPLACE IV PRN (17:55)
--- NOTE | 2018-12-08 18:33 | NUR ---
Problems reprioritized. Patient report given, questions answered & plan of care reviewed with Eliot Chu.
[2018-12-08] MEDS: metoprolol tartrate 12.5mg (1/2 tablet) PO SCH (19:58)
[2018-12-09] VITALS (14 sets, daily range): BP systolic 116–144; BP diastolic 61–90
[2018-12-09 05:45] LABS: ALANINE AMINOTRANSFERASE 533 U/L (12-78); ALBUMIN 2.7 G/DL (3.4-5.0); ALBUMIN/GLOBULIN RATIO 0.9 (1.1-1.5); ALKALINE PHOSPHATASE 32 IU/L (46-116); ANION GAP 7 (8-16); ASPARTATE AMINO TRANSFERASE 333 U/L (10-37); BILIRUBIN,TOTAL 0.5 MG/DL (0.1-1.0); BLOOD UREA NITROGEN 11 MG/DL (7-18); CALCIUM 8.7 MG/DL (8.5-10.1); CHLORIDE 108 MMOL/L (99-107); CREATININE 0.61 MG/DL (0.60-1.10); GLUCOSE 102 MG/DL (70-104); MAGNESIUM 1.8 MG/DL (1.5-2.4); PHOSPHORUS 3.8 MG/DL (2.3-4.5); POTASSIUM 3.4 MMOL/L (3.5-5.1); PREALBUMIN 17.2 MG/DL (19-36); SODIUM 143 MMOL/L (135-145); TOTAL CARBON DIOXIDE 27.9 MMOL/L (24-32); TOTAL PROTEIN 5.8 G/DL (6.4-8.2); eGFR > 90 ML/MIN
[2018-12-09 05:51] LABS: BASOPHILS # (AUTO) 0.1 X10'3 (0-0.2); BASOPHILS % (AUTO) 0.7 % (0-1); EOSINOPHILS # (AUTO) 0.2 X10'3 (0-0.9); EOSINOPHILS % (AUTO) 2.2 % (0-6); HEMATOCRIT 37.1 % (42.0-52.0); HEMOGLOBIN 12.6 g/dl (14.0-17.9); LYMPHOCYTES # (AUTO) 2.2 X10'3 (1.1-4.8); LYMPHOCYTES % (AUTO) 27.9 % (21-51); MEAN CORPUSCULAR HEMOGLOBIN 29.5 PG (27.0-31.0); MEAN CORPUSCULAR HGB CONC 33.9 g/dL (33.0-36.5); MEAN CORPUSCULAR VOLUME 87.1 FL (78-98); MEAN PLATELET VOLUME 8.2 FL (7.4-10.4); MONOCYTES # (AUTO) 1.2 X10'3 (0-0.9); MONOCYTES % (AUTO) 15.9 % (2-12); NEUTROPHILS # (AUTO) 4.2 X10'3 (1.8-7.7); NEUTROPHILS % (AUTO) 53.3 % (42-75); PLATELET COUNT 253 X10'3 (140-440); RED BLOOD COUNT 4.27 X10'6 (4.70-6.10); RED CELL DISTRIBUTION WIDTH 13.1 % (11.5-14.5); WHITE BLOOD COUNT 7.9 X10'3 (4.5-11.0)
[2018-12-09] MEDS: K, MAG and/or Phos replacement - Verify level? MC SCH (08:00)
[2018-12-09] MEDS: docusate sodium 100mg/10ml UD cup PO SCH (08:00)
[2018-12-09 08:21] LABS: LARGE PLATELETS FEW; PLATELET ESTIMATE NORMAL
[2018-12-09] MEDS: lactobacillus rhamnosus 10,000 MMU CELLS/CAPSULE PO SCH (08:38)
[2018-12-09] MEDS: levetiracetam 250mg tablet PO SCH (08:38)
[2018-12-09] MEDS: aspirin 81mg tablet.DR PO SCH (08:38)
[2018-12-09] MEDS: metoprolol tartrate 12.5mg (1/2 tablet) PO SCH (08:39)
[2018-12-09] MEDS: multivitamins, therapeutics tablet PO SCH (08:41)
[2018-12-09] MEDS: thiamine 100mg tablet PO SCH (08:41)
[2018-12-09] MEDS: oseltamivir phos 75mg capsule PO SCH (08:41)
[2018-12-09] MEDS: folic acid 1mg tablet PO SCH (08:41)
[2018-12-09] MEDS: heparin, porcine 5000 units/ml vial SQ SCH (08:43)
[2018-12-09] MEDS ORDERED: aminophylline inj. 10 ML IV ONE (09:09)
[2018-12-09] MEDS ORDERED: regadenoson 0.4mg/5ml syringe IV ONE (09:09)
[2018-12-09] MEDS: potassium Cl 20 mEq SR tablet PO PRN (10:06)
--- NOTE | 2018-12-09 13:52 | NUR ---
Patient left AMA. I educated and encouraged patient to stay. His ride came to the floor and he wanted to immediately leave. IV was removed, tele removed. patient given AMA form and signed. Pt was given his belongings ticket. encouraged patient to come back/ call 911 if symptoms reoccur and to follow up with primary doctor and flight attendant ramp. MD Crandall informed/aware
== END 2018-12-09 13:33 | disposition left against medical advice (07) | DRG 812 ==
LOC: ER 11:26 → ED HOLD 12:30 → CICU 2S 13:43 → PCU 3S 12-08 17:25
PROC: 5A1945Z Respiratory Ventilation, 24-96 Consecutive Hours (ICD-10-PCS; 2018-12-03)
PROC: 0BH17EZ Insertion of Endotracheal Airway into Trachea, Via Natural or Artificial Opening (ICD-10-PCS; 2018-12-03)
PROC: 4A00X4Z Measurement of Central Nervous Electrical Activity, External Approach (ICD-10-PCS; principal; 2018-12-05)
DX: T39.091A Poisoning by salicylates, accidental (unintentional), initial encounter (principal); I21.4 Non-ST elevation (NSTEMI) myocardial infarction; J96.00 Acute respiratory failure, unspecified whether with hypoxia or hypercapnia; G40.901 Epilepsy, unspecified, not intractable, with status epilepticus; K92.2 Gastrointestinal hemorrhage, unspecified; I73.9 Peripheral vascular disease, unspecified; J10.1 Influenza due to other identified influenza virus with other respiratory manifestations; Y92.89 Other specified places as the place of occurrence of the external cause; Z53.21 Procedure and treatment not carried out due to patient leaving prior to being seen by health care provider
CPT/HCPCS: 36415; 36600; 70544; 70551; 71045; 78452; 80053; 80185; 80202; 81001; 82140; 82803; 82948; 83605; 83735; 83880; 84100; 84132; 84134; 84484; 85018; 85025; 85610; 85730; 87040; 87070; 87088; 87502; 87503; 93005; 93017; 93306; 94002; 94003; 94668; 94760; 95816; 97110; 97116; 97161; 97530; 99291; A9500; C9113; G0378; J0131; J0133; J0280; J0696; J1644; J1953; J2250; J2704; J3010; J3370; J3411; J3475; J3480; J3490; J7030; J7060; J7120; Q2009